=== PATIENT | female | born 1980 | race Caucasian/White ===

== ENCOUNTER 2018-01-31 16:07 | Emergency (ER) | payer MEDICAID, SELFPAY ==
[~2018-01-31] VITALS: Ht 172.7 cm; Wt 120.0 kg
[2018-01-31 16:18] VITALS: BP 133/82
[2018-01-31] MEDS ORDERED: SODIUM CHLORIDE FLUSH 10ML SYR IVF ONE (16:30)
[2018-01-31 16:39] LABS: BASOPHILS # (AUTO) 0.04 x10^3/uL (0-0.1); BASOPHILS % (AUTO) 1 % (0-1); EOSINOPHILS # (AUTO) 0.13 x10^3/uL (0-0.4); EOSINOPHILS % (AUTO) 1 % (1-7); LYMPHOCYTES # (AUTO) 2.56 x10^3/uL (1-3.4); LYMPHOCYTES % (AUTO) 27 % (22-44); MD NO; MEAN CORPUSCULAR HEMOGLOBIN 28.8 pg (27.0-34.8); MEAN CORPUSCULAR HGB CONC 33.7 g/dL (32.4-35.8); MEAN CORPUSCULAR VOLUME 85.5 fL (80-100); MEAN PLATELET VOLUME 7.9 fL (7.4-10.4); MONOCYTES # (AUTO) 0.53 x10^3/uL (0.2-0.8); MONOCYTES % (AUTO) 6 % (2-9); NEUTROPHILS # (AUTO) 6.09 x10^3/uL (1.8-6.8); NEUTROPHILS % (AUTO) 65 % (42-75); PLATELET COUNT 386 x10^3/uL (130-400); RED BLOOD COUNT 5.02 x10^6/uL (3.82-5.3); RED CELL DISTRIBUTION WIDTH 13.1 % (9.6-15.2)
[2018-01-31 16:46] LABS: ALBUMIN 3.4 g/dL (3.4-5.0); ANION GAP 4 mmol/L (5-15); CALCIUM 8.6 mg/dL (8.5-10.1); CHLORIDE 109 mmol/L (98-107); CREATININE 0.82 mg/dL (0.55-1.02)
== END 2018-01-31 17:12 | disposition home or self-care (01) ==
LOC: ED 16:45
DX: L03.115 Cellulitis of right lower limb (principal)
CPT/HCPCS: 36415; 80048; 82040; 85025; 99284

== ENCOUNTER 2020-03-19 09:37 | Emergency (ER) | payer MEDICAID ==
[~2020-03-19] VITALS: Ht 172.7 cm; Wt 91.0 kg
[2020-03-19 09:38] VITALS: BP 110/63
[2020-03-19] MEDS ORDERED: HYDROmorphone 1 MG/ML, 1ML INJ IM ONE (10:00)
[2020-03-19] MEDS ORDERED: HYDROmorphone 2 MG/ML, 1ML ONE (10:12)
[2020-03-19] MEDS ORDERED: ONDANSETRON ODT 4 MG ONE (10:14)
[2020-03-19] MEDS ORDERED: ONDANSETRON ODT 4 MG PO ONE (10:30)
--- NOTE | 2020-03-19 10:44 | NUR ---
Patient given discharge instructions and they have confirmed that they understand the instructions. Patient ambulatory with steady gait.
== END 2020-03-19 10:46 | disposition home or self-care (01) ==
LOC: ED 10:45
DX: G89.29 Other chronic pain (principal); M54.16 Radiculopathy, lumbar region; M54.42 Lumbago with sciatica, left side; M54.41 Lumbago with sciatica, right side
CPT/HCPCS: 96372; 99283; J1170; Q0162